=== PATIENT | female | born 1945 | race Caucasian/White ===

== ENCOUNTER 2018-02-26 06:37 | Emergency (ER) | payer OTHER ==
[2018-02-26] MEDS ORDERED: EPINEPHrine 0.1 MG/ML SYG (07:00)
[2018-02-26] MEDS ORDERED: NA BICARBONATE 8.4% 50 ML SYG (07:00)
== END 2018-02-26 10:59 | disposition expired ==
LOC: E/R 06:37
DX: I46.9 Cardiac arrest, cause unspecified (principal); Z85.05 Personal history of malignant neoplasm of liver
CPT/HCPCS: 31500; 92950; 93005; 99291-25